=== PATIENT | male | born 1955 | race Caucasian/White ===

== ENCOUNTER 2017-06-21 16:40 | Emergency (ER) | payer MEDICARE ==
[~2017-06-21] VITALS: Ht 188 cm; Wt 77.2 kg
[2017-06-21 16:43] VITALS: BP 177/110; PULSE 84; RESP 16; O2SAT 97
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
[2017-06-21] MEDS ORDERED: Albuterol-Ipratropium 3 mL Inhalation Solution NEB ONE (18:40)
[2017-06-21 18:59] VITALS: PULSE 79; RESP 16; O2SAT 100
[2017-06-21 19:18] LABS: BASOPHILS % (AUTO) 0.1 % (0-3); EOSINOPHILS % (AUTO) 0.3 % (0-5); MONOCYTES % (AUTO) 8.6 % (4-12); Mean Corpuscular Volume 90.7 fL (81-100); Platelet Count 223 bil/L (150-400)
[2017-06-21 19:45] VITALS: BP 168/99; PULSE 71; RESP 20; O2SAT 96
--- NOTE | 2017-06-21 19:57 | DRSVH ---
PROCEDURE: X-RAY CHEST ONE VIEW, PORTABLE ([id number]) INDICATIONS: chest pain TECHNIQUE: One view of the chest was acquired. COMPARISON: [facility], CT, CT CHEST WO CON, 02/13/2017, 9:41. [facility], CR, CHEST 2VW, 04/22/2015, 8:51. FINDINGS: Surgical changes and devices: None. Lungs and pleura: No pleural effusions or pneumothorax. Focal opacity projects in the left lower lob e. Unclear if this correlates to the lingular consolidation seen on recent CT dated 02/13/17 Elsewhere , no consolidation Mediastinum: Mediastinal contours appear normal. Heart size is normal. Bones and chest wall: No suspicious bony lesions. Overlying soft tissues appear unremarkable. IMPRESSION: Focal opacity projecting in the left lower lobe possibly bronchopneumonia although recommended clinic al correlation and followup PA and lateral chest radiographs after treatment to exclude pulmonary nod ule. Dictated by: Rufino Mercado M.D. on 06/21/2017 at 19:52 Approved by: Rufino Mercado M.D. on 06/21/2017 at 19:55
[2017-06-21 20:58] VITALS: BP 169/86; PULSE 75; RESP 19; O2SAT 98
[2017-06-21] MEDS ORDERED: ALBU8.5H2 INHALATION ×2 (21:29→21:31)
[2017-06-21] MEDS ORDERED: ZIT250 PO (21:29)
== END 2017-06-21 21:58 | disposition home or self-care (01) ==
LOC: SED 16:40
DX: J18.1 Lobar pneumonia, unspecified organism (principal); J44.1 Chronic obstructive pulmonary disease with (acute) exacerbation; I10 Essential (primary) hypertension; J44.9 Chronic obstructive pulmonary disease, unspecified; F20.9 Schizophrenia, unspecified; Z87.891 Personal history of nicotine dependence
CPT/HCPCS: 36415; 71010; 80053; 81002; 82075; 84443; 85025; 90791; 93005; 94640; 99285; J7620